=== PATIENT | female | born 1935 | race Caucasian/White ===

== ENCOUNTER 2018-12-31 20:05 | Emergency (ER) | payer MEDICARE, BC ==
[~2018-12-31] VITALS: Ht 167.6 cm; Wt 79.5 kg
[~2018-12-31 20:05] MED LIST: ASPI-817 PO; BENA40TA56 PO; GLIP5TAB13 PO; METO-429 PO; NITR100C6 PO; SIMV40TA2 PO
[2018-12-31 20:10] VITALS: Ht 167.6 cm; Wt 79.5 kg
--- NOTE | 2018-12-31 20:19 | ERD ---
ER Documentation Chief Complaint Chief Complaint BIB RA for nervousness and htn HPI The patient is a 83-year-old female, presenting to the ER because of elevated blood pressure and not feeling very anxious. Tomorrow will be her 's 25 anniversary. Her son-in-law recently. She denies syncope, near syncope, headache, dizziness, neck pain, chest pain, dyspnea, abdominal pain, vomiting, dysuria, diarrhea. She does not smoke or drink Past medical history: Dyslipidemia, diabetes mellitus, hypertension, depression Past surgical history: None ROS All systems reviewed and are negative except as per history of present illness. Medications Home Meds Active Scripts Nitrofurantoin Monohyd Macrocr (Macrobid) 100 Mg Capsr, 100 MG PO BID, #4 Prov:KEVEN WEST MD 06/05/15 Aspirin* (Aspirin* EC) 81 Mg Tabec, 81 MG PO DAILY, #30 Prov:KEVEN WEST MD 06/05/15 Reported Medications Simvastatin* (Zocor*) 40 Mg Tablet, 40 MG PO HS, TAB 06/05/15 Glipizide* (Glipizide*) 5 Mg Tablet, 5 MG PO DAILY AC MEALS, TAB 06/05/15 Benazepril Hcl* (Benazepril Hcl*) 40 Mg Tablet, 40 MG PO DAILY, TAB 06/05/15 Metoprolol Tartrate* (Lopressor*) 50 Mg Tab, 75 MG PO BID AFTER MEALS, TAB 06/05/15 Allergies Allergies: Coded Allergies: No Known Allergy (Unverified , 06/03/15) PMhx/Soc History of Surgery: Yes (R eye surgery) Anesthesia Reaction: No Hx Neurological Disorder: No Hx Respiratory Disorders: No Hx Cardiac Disorders: No Hx Psychiatric Problems: No Hx Miscellaneous Medical Probl: Yes (Htn,dyslipidemia,DM,metabolic syndrome,arthritis,glaucoma) Hx Alcohol Use: No Hx Substance Use: No Hx Tobacco Use: No Smoking Status: Never smoker Physical Exam Vitals Vital Signs Date Temp Pulse Resp B/P (MAP) Pulse Ox O2 O2 Flow FiO2 Time Delivery Rate 12/31/18 97.5 98 20 169/90 98 Room Air 22:57 (116) 12/31/18 97.5 98 20 233/108 98 20:10 (149) Physical Exam Const: No acute distress. Emotional, crying Head: Atraumatic. Eyes: Normal Conjunctiva. ENT: Normal External Ears, Nose and Mouth. Neck: Full range of motion. No meningismus. Resp: Clear to auscultation bilaterally. Cardio: Regular rate and rhythm. Abd: Soft, non distended, normal bowel sounds, non tender. Skin: No petechiae or rashes. Back: No midline or flank tenderness. Ext: No cyanosis, or edema. Neur: Awake and alert. No focal deficit Psych: Normal Mood and Affect. Result Diagram: 12/31/18212312/31/182123 Results 24 hrs Laboratory Tests Test 12/31/18 21:24 White Blood Count 5.2 10^3/ul Red Blood Count 3.88 10^6/ul Hemoglobin 12.0 g/dl Hematocrit 36.0 % Mean Corpuscular Volume 92.8 fl Mean Corpuscular Hemoglobin 30.9 pg Mean Corpuscular Hemoglobin Concent 33.3 g/dl Red Cell Distribution Width 12.7 % Platelet Count 231 10^3/UL Mean Platelet Volume 11.0 fl Immature Granulocytes % 0.400 % Neutrophils % 55.7 % Lymphocytes % 33.3 % Monocytes % 8.3 % Eosinophils % 1.9 % Basophils % 0.4 % Nucleated Red Blood Cells % 0.0 /100WBC Immature Granulocytes # 0.020 10^3/ul Neutrophils # 2.9 10^3/ul Lymphocytes # 1.7 10^3/ul Monocytes # 0.4 10^3/ul Eosinophils # 0.1 10^3/ul Basophils # 0.0 10^3/ul Nucleated Red Blood Cells # 0.0 10^3/ul Prothrombin Time 13.1 Sec Prothrombin Time Ratio 1.0 INR International Normalized Ratio 0.98 Activated Partial Thromboplast Time 26.9 Sec Sodium Level 138 mmol/L Potassium Level 4.3 mmol/L Chloride Level 99 mmol/L Carbon Dioxide Level 25 mmol/L Anion Gap 14 Blood Urea Nitrogen 22 mg/dl Creatinine 0.99 mg/dl Est Glomerular Filtrat Rate mL/min mL/min Glucose Level 150 mg/dl Calcium Level 9.9 mg/dl Current Medications Medications Dose Sig/Moses Start Time Status Last (Trade) Ordered Route PRN Stop Time Admin Dose Reason Admin Nifedipine 30 mg ONCE ONCE 12/31/18 DC 12/31/18 (Procardia PO 20:30 21:34 Xl) 12/31/18 20:31 Alprazolam 0.25 mg ONCE ONCE 12/31/18 DC 12/31/18 (Xanax) PO 20:30 21:34 12/31/18 20:31 Procedures/MDM [facility] [address] [address] Radiology Main Line: [phone] DIAGNOSTIC IMAGING REPORT Patient: PAUL BURNETT : 1935 Age: 83 Sex: F MR #: [id number] DOS: 12/31/182028 Ordering MD: QUIQUE MURRIETA MD Location: E/R Room/Bed: PROCEDURE: CT Brain without contrast. CLINICAL INDICATION: Patient experiencing a headache. TECHNIQUE: A CT of the brain was performed from the skull base through the vertex without IV contrast. Multiplanar reformatted images were made. Images were reviewed on a PACS workstation. The CTDIvol is 39 mGy and the DLP is 634 mGycm. DICOM images are available. One or more of the following dose reduction techniques were utilized: 1.) Automated exposure control 2.) Adjustment of the mA +/- kV according to patient's size 3.) Use of iterative reconstruction technique. 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 No mass, hemorrhage, or evidence of acute infarct. There is parenchymal volume loss. Periventricular and subcortical white matter hypodensities are seen, nonspecific, likely related to chronic small vessel ischemic disease. The ventricles are otherwise normal in size and configuration. Intracranial atherosclerotic calcifications are present. Bones: The skull base and calvarium are normal in appearance. Orbits: Left orbital lens replacement noted. Soft tissues: Unremarkable Paranasal sinuses: Visualized sinuses are clear. IMPRESSION: No acute intracranial findings. 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 Background chronic microvascular ischemic disease also noted. RPTAT:HCLE Physician Turner Date Time Electronically viewed and signed by Physician Turner on 12/31/2018 21:41 cE/ CC: QUIQUE MURRIETA MD [id number] MEDICAL MAKING DECISION: The patient is a 83-year-old female, presenting with acute hypertensive urgency, acute anxiety. She was treated with Procardia XL 30 mg p.o. for acute hypertensive urgency and Xanax 0.25 mg p.o. for acute anxiety with good response, is stable for outpatient follow-up. Her blood pressure improved The differential diagnoses considered include but are not limited to medical noncompliance, dietary noncompliance, anxiety attack, panic attack, subarachnoid hemorrhage, occult trauma, CVA, meningitis, encephalitis, hypertension, tension, migraine, cluster, narcotic withdrawal, cervical spine disease. Departure Diagnosis: Primary Impression: Hypertensive urgency Additional Impression: Anxiety Condition: Good Comments I discussed the findings with the patient. I advised the patient to follow-up with the primary physician in about 2-3 days, sooner if needed and return if any concern. Disclaimer: Inadvertent spelling and grammatical errors are likely due to EHR /dictation software use and do not reflect on the overall quality of patient care. Also, please note that the electronic time recorded on this note does not necessarily reflect the actual time of the patient encounter. QUIQUE MURRIETA MD Dec 31, 2018 20:19
[2018-12-31] MEDS ORDERED: NIFEdipine (XL) 30 MG TAB PO ONE (20:30)
[2018-12-31] MEDS ORDERED: ALPRAZOLAM 0.25 MG TAB PO ONE (20:30)
[2018-12-31 23:24] VITALS: BP 172/94; PULSE 94; RESP 20
== END 2018-12-31 23:36 | disposition home or self-care (01) ==
LOC: E/R 20:05
DX: I16.0 Hypertensive urgency (principal); F41.9 Anxiety disorder, unspecified; E11.9 Type 2 diabetes mellitus without complications; R51 Headache; Z79.82 Long term (current) use of aspirin; Z79.84 Long term (current) use of oral hypoglycemic drugs
CPT/HCPCS: 36415; 70450; 80048; 85025; 85610; 85730